=== PATIENT | male | born 1970 | race Caucasian/White ===

== ENCOUNTER 2018-12-23 01:08 | Emergency (ER) | payer OTHER, SELFPAY ==
[2018-12-23] VITALS (8 sets, daily range): BP systolic 97–164; BP diastolic 57–134; PULSE 54–74; RESP 16–22; TEMP 36.6; O2SAT 95–99; BMI 32.1
--- NOTE | 2018-12-23 01:15 | EKG12_ITS ---
Test Reason : CP Blood Pressure : / mmHG Vent. Rate : 073 BPM Atrial Rate : 073 BPM P-R Int : 122 ms QRS Dur : 088 ms QT Int : 418 ms P-R-T Axes : 040 031 048 degrees QTc Int : 460 ms Normal sinus rhythm Nonspecific T wave abnormality Abnormal ECG Confirmed by BELA NYE, RENETTA ([id number]), editor in chief newspaper KEVIN HOLLOWAY ([id number]) on 12/24/2018 12:55:40 PM Referred By: Confirmed By:RENETTA CRAMER MD
--- NOTE | 2018-12-23 01:15 | RAD_ITS ---
HISTORY: CPChest PainRAD - Chest EXAM: XR Chest 1 View: COMPARISON: None FINDINGS: # of images incl. paperwork: 1 Lungs are clear. Heart is not enlarged. Bones are normal. Pulmonary vascularity is distinct. No effusions. RAD/Chest 1 View (Portable) IMPRESSION: Normal. at 0205 Reported and signed by: Abebe Worthington MD Electronically Signed: Abebe Worthington MD at 2:04 EDT Tel , Service support ,
--- NOTE | 2018-12-23 01:20 | ED.DCSUM_ITS ---
- ER Visit Summary Date of Service: 12/23/18 Chief Complaint: Chest pain History of Present Illness: The patient is a 48 M presenting with chest pain. Patient states this started 1 hour ago. It woke him from sleep. He has pain in the left chest. He denies shortness of breath. Denies nausea or vomiting. Patient was given aspirin and nitro per EMS. Pain improved with nitro. He has a history of hypertension. He chews tobacco. He states he drank 3 beers tonight. Denies PE/DVT risk factors. Physical Examination: Vitals are stable. Patient is afebrile. Alert no acute distress. HEENT exam is unremarkable. Neck is supple. Lungs are clear and equal bilaterally. Heart is regular rate and rhythm. Abdomen is soft nontender nondistended. Extremities are unremarkable. Skin is warm and dry. No focal neurologic deficit. Remainder of exam is unremarkable. Emergency Department Course and Treatment: Patient was given aspirin per EMS. EKG is sinus rate of 73 with nonspecific T wave changes. Chest x-ray shows no acute process. CBC, chemistries unremarkable other than sodium 132, potassium 3.2. Troponin is negative. Alcohol level 391. Repeat troponin will be obtained and checked out to the oncoming physician. Disposition: Pending Impression: Chest pain, alcohol intoxication This note was generated with [employer] dictation software. It may contain incorrect words, spelling, and punctuation that were not noted in review of the chart prior to signing ED Disposition - Plan for ED Patient: Instructions: ED Chest Pain Atypical Unkn Cause, ED Alcohol Intoxication Referrals: Care Physician,No Primary [NON-STAFF] -
[2018-12-23 01:26] LABS: Absolute Lymphocyte Count 2.14 X10^3/ul (0.83-4.51); Absolute Neutrophil Count 1.8 X10^3/uL (2.0-7.7); Basophil# 0.02 X10^3/uL; Basophil% 0.4 % (0-1); Eosinophil# 0.11 X10^3/uL; Eosinophils% 2.3 % (0-5); Hematocrit 41.5 % (40-54); Lymphocyte # 2.14 X10^3/ul (4.0); Mean Corp Hgb Conc 36.1 g/gl (32-36); Mean Corpuscular Hgb 31.8 pg (27.0-32.0); Mean Corpuscular Volume 88.1 fL (80-94); Mean Platelet Vol. 8.8 fl (6.2-12.0); Monocyte# 0.68 X10^3/uL; Monocyte% 14.3 % (0-10); Neutrophil # 1.81 X10^3/uL (2.7-7.7); Platelet Count 162 K/mm3 (150-450); RBC Distribution Width SD 38.1 fl (35.1-43.9); Red Blood Count 4.71 M/mm3 (4.6-6.2); White Blood Count 4.8 K/mm3 (4.4-11.0)
[2018-12-23 01:40] LABS: Anion Gap 9 (5-15); BUN 7 mg/dL (7-18); BUN/Creat Ratio 7.4 RATIO (10-20); Calcium,Total 8.1 mg/dL (8.5-10.1); Chloride 98 mmol/L (98-107); Creatinine, Serum 0.95 mg/dL (0.70-1.30); EST Glomerular Filtration Rate 91 mL/min (>60); Est Glom Filt Rate - Afr Amer 110 mL/min (>60); Estimated Creatinine Clearance 96.13 ml/min; Glucose 95 mg/dL (74-106); Potassium 3.2 mmol/L (3.5-5.1); Sodium Level 132 mmol/L (136-145)
[2018-12-23 01:43] LABS: POSITIVE COUNT NO; POSITIVE DIFFERENTIAL NO; POSITIVE MORPHOLOGY NO
--- NOTE | 2018-12-23 01:52 | ED.RN ---
CRITICAL LAB VALUE RECEIVED FROM LAB. ETOH 391.
--- NOTE | 2018-12-23 03:01 | ED.DEP ---
ED Disposition - Plan for ED Patient: Instructions: ED Chest Pain Atypical Unkn Cause, ED Alcohol Intoxication Referrals: Care Physician,No Primary [NON-STAFF] -
== END 2018-12-23 07:55 | disposition home or self-care (01) ==
LOC: ED 01:33
PROVIDERS: Emergency Provider Emergency Medicine; Family Provider Family Medicine; PCP Family Medicine
DX: R07.9 Chest pain, unspecified (principal); F10.129 Alcohol abuse with intoxication, unspecified; Y90.8 Blood alcohol level of 240 mg/100 ml or more; I10 Essential (primary) hypertension; Z72.0 Tobacco use
CPT/HCPCS: 71045; 80048; 80320; 84484; 85025; 93005; 99285; J7030; A4216; G0480

== ENCOUNTER → 2020-05-18 15:20 | Outpatient (CLI) | payer OTHER, SELFPAY ==
[2018-12-23 01:09] VITALS: BMI 32.1
[2020-05-18 16:18] LABS: ALB/GLOB Ratio 1.3 RATIO (0.9-2.4); AST(SGOT) 64 U/L (15-37); Alanine Aminotransfer ALT/SGPT 88 U/L (16-61); Albumin, Serum 4.4 g/dL (3.2-5.0); Alkaline Phosphatase 60 U/L (45-117); Anion Gap 7 (5-15); BUN 10 mg/dL (7-18); BUN/Creat Ratio 10.3 RATIO (10-20); Calcium,Total 9.2 mg/dL (8.5-10.1); Chloride 107 mmol/L (98-107); Cholesterol 147 mg/dL (200); Creatinine, Serum 0.97 mg/dL (0.70-1.30); EST Glomerular Filtration Rate 87 mL/min (>60); Est Glom Filt Rate - Afr Amer 106 mL/min (>60); Globulin 3.5 g/dL (2.2-4.2); Glucose 86 mg/dL (74-106); High Density Lipoprotein 97 mg/dL; Potassium 3.8 mmol/L (3.5-5.1); Protein, Total 7.9 g/dL (6.4-8.2); Sodium Level 142 mmol/L (136-145); Triglycerides 42 mg/dL; Very Low Density Lipoprotein 8 mg/dL (5-40)
== END ==
PROVIDERS: PCP Family Medicine; Referring Provider Nurse Practitioner Primary Care; Visit Provider Nurse Practitioner Primary Care
DX: I10 Essential (primary) hypertension (principal)
CPT/HCPCS: 36415; 80053; 80061

== ENCOUNTER 2024-07-29 14:14 | Emergency (ER) | payer OTHER, SELFPAY ==
[2024-07-29 14:21] VITALS: BP 196/124; PULSE 86; RESP 18; TEMP 37.1; O2SAT 100
[2024-07-29 14:22] VITALS: BP 171/116; PULSE 77; RESP 20; O2SAT 94
--- NOTE | 2024-07-29 14:22 | EKG12_ITS ---
Test Reason : POSS STROKE Blood Pressure : */* mmHG Vent. Rate : 70 BPM Atrial Rate : 70 BPM P-R Int : 128 ms QRS Dur : 82 ms QT Int : 402 ms P-R-T Axes : 54 14 21 degrees QTcB Int : 434 ms Normal sinus rhythm Normal ECG Confirmed by RENATO NYE, AMISH ([id number]), rewrite editor WENDY GRIMALDO ([id number]) on 08/06/2024 6:37:02 AM Referred By: Confirmed By: AMISH GROSS MD
--- NOTE | 2024-07-29 14:22 | CT_ITS ---
STUDY: CT HEAD STROKE PROTOCOL W/O CONTRAST INJECTION REASON FOR EXAM: Male, 54 years old. Neuro deficit, acute, stroke suspected RADIATION DOSAGE (If Supplied By Facility): CTDIvol = ( 44.99 ) mGy, DLP = ( 812.98 ) mGycm TECHNIQUE: Transaxial CT imaging of the brain was performed without administration of intravenous contrast material. Individualized dose optimization techniques were used for this CT. COMPARISON: No relevant priors. FINDINGS: Normal soft tissue structures. Normal calvarium. There is mild cerebral atrophy with widening of the extra-axial spaces and ventricular dilatation. Normal white matter tracts of the cerebral hemispheres. Normal basal ganglia and thalami. Normal brainstem. Normal cerebellum. There is no intracranial hemorrhage. There are no findings of an acute ischemic infarction. Mucosal thickening of the right ethmoid sinus. ASPECT score: 10 CT/STROKE Brain/Head without Cont IMPRESSION: Chronic involutional changes of the brain. N.B. : The above Results were Read Back by Kamlesh Larios MD to Olayinka Candelario and understanding confirmed on 07/29/2024 14:34:26 (ET). Electronically Signed: Kamlesh Larios MD at 14:38 EST ,
--- NOTE | 2024-07-29 14:23 | CT_ITS ---
STUDY: CTA HEAD AND NECK WITH CONTRAST REASON FOR EXAM: Male, 54 years old. Neuro deficit, acute, stroke suspected RADIATION DOSAGE (If Supplied By Facility): CTDIvol = ( 28.88 ) mGy, DLP = ( 798.17 ) mGycm TECHNIQUE: CT angiography was performed with a multi-detector CT scanner. Data acquisition was obtained from the skull base through the vertex following intravenous administration of IV 100mL Isovue-[id number]. MIP images were reconstructed from the axial data set. Post-processing of the angiographic images was performed, with multiplanar reformation and 3D reconstruction. Individualized dose optimization techniques were used for this CT. COMPARISON: No relevant priors. FINDINGS: Normal bilateral petrous carotid arteries. Normal right cavernous carotid artery with a normal supraclinoid bifurcation. Normal left cavernous carotid artery with a normal supraclinoid bifurcation. Normal right A1 segments of the anterior cerebral artery. Normal left A1 segments of the anterior cerebral artery. Normal intact anterior communicating artery (ACOM). Normal bilateral A2 segments of the anterior cerebral arteries. Normal right M1 and M2 segments of the middle cerebral arteries, with a normal M1 bifurcation. Normal left M1 and M2 segments of the middle cerebral arteries, with a normal M1 bifurcation. Normal right posterior communicating artery (PCOM). Normal left posterior communicating artery (PCOM). Normal bilateral vertebral arteries. Normal basilar artery with a normal basilar bifurcation. The visualized bilateral superior cerebellar (SCA) arteries are normal. Normal bilateral P1, P2 and visualized P3 segments of the posterior cerebral arteries. There is no demonstrated aneurysm of the craig of [place]. There is no demonstrated abnormality of the visualized brain. AORTIC ARCH: Normal visualized aortic arch. Normal origins of the brachiocephalic, left common carotid, and left subclavian arteries. RIGHT CAROTID ARTERIES: Normal right common carotid artery (CCA). Normal right common carotid bulb. Normal origin of the right internal carotid (ICA) artery without a hemodynamically significant stenosis. Normal visualized cervical portion of the right internal carotid artery. Normal origin of the right external carotid artery (ECA). LEFT CAROTID ARTERIES: Normal left common carotid artery (CCA). Normal left common carotid bulb. Normal origin of the left internal carotid (ICA) artery without a hemodynamically significant stenosis. Normal visualized cervical portion of the left internal carotid artery. Normal origin of the left external carotid artery (ECA). VERTEBRAL ARTERIES: There is enhancement within the bilateral vertebral arteries with a small right vertebral artery, and a dominant left vertebral artery. CT/STROKE CTA Head AND Neck W/Con IMPRESSION: Normal CTA Head and neck with contrast. N.B. : The above Results were Read Back by Kamlesh Larios MD to Dr Kodak DO, and understanding confirmed on 07/29/2024 14:45:12 (ET). Electronically Signed: Kamlesh Larios MD at 14:46 EST ,
[2024-07-29 14:26] VITALS: BMI 28.6
[2024-07-29 14:31] LABS: Absolute Lymphocyte Count 1.39 X10^3/uL (0.83-4.51); Absolute Neutrophil Count 2.3 X10^3/uL (2.0-7.7); Basophil# 0.05 X10^3/uL; Basophil% 1.1 % (0-1); Eosinophil# 0.12 X10^3/uL; Eosinophils% 2.7 % (0-5); Hematocrit 44.5 % (40-54); Hemoglobin 15.4 g/dL (13.0-16.5); Lymphocyte # 1.39 X10^3/ul (0.83-4.51); Mean Corp Hgb Conc 34.6 g/dL (32-36); Mean Corpuscular Volume 95.5 fL (80-94); Mean Platelet Vol. 8.7 fl (6.2-12.0); Monocyte# 0.59 X10^3/uL; Monocyte% 13.1 % (0-10); NRBC Flagged by Analyzer 0 % (0-5); Neutrophil # 2.33 X10^3/uL (2.7-7.7); Neutrophil % 51.9 % (47-70); Platelet Count 157 K/mm3 (150-450); RBC Distribution Width CV 12.1 % (11.6-14.6); RBC Distribution Width SD 42.3 fl (35.1-43.9); Red Blood Count 4.66 M/mm3 (4.6-6.2); White Blood Count 4.5 K/mm3 (4.4-11.0)
[2024-07-29 14:32] VITALS: BMI 28.6
[2024-07-29 14:42] VITALS: BP 168/124; PULSE 78; RESP 19; O2SAT 98
[2024-07-29 14:48] LABS: Anion Gap 8 (5-15); BUN 6 mg/dL (7-18); BUN/Creat Ratio 8.3 RATIO (10-20); Calcium,Total 9.4 mg/dL (8.5-10.1); Chloride 106 mmol/L (98-107); Creatinine, Serum 0.72 mg/dL (0.70-1.30); EST Glomerular Filtration Rate 121 mL/min (>60); Est Glom Filt Rate - Afr Amer 147 mL/min (>60); Estimated Creatinine Clearance 127.81 ml/min; Glucose 94 mg/dL (74-106); Potassium 4.5 mmol/L (3.5-5.1); Sodium Level 138 mmol/L (136-145); Troponin-I HS 5 pg/mL (3.0-78.0)
[2024-07-29 14:55] LABS: Bedside Glucose 77 mg/dL (74-106)
--- NOTE | 2024-07-29 15:05 | RAD_ITS ---
STUDY: X-RAY CHEST REASON FOR EXAM: Male, 54 years old. Neuro deficit, acute, stroke suspected TECHNIQUE: Single AP portable view of the chest. COMPARISON: Comparison is made with prior study dated December 23, 2018. FINDINGS: EKG electrodes are seen. The lungs are clear and expanded. There is no demonstrated pleural abnormality. Normal size heart. Normal mediastinum and joann. Normal visualized pulmonary arteries. There is atherosclerotic tortuosity of the aortic arch and descending thoracic aorta. There are diffuse degenerative changes of the visualized thoracic spine. Normal visualized ribs, clavicles, and shoulders. There is no demonstrated abnormality of the visualized soft tissue structures of the upper abdomen. RAD/Chest 1 View IMPRESSION: No acute abnormality is seen. Electronically Signed: Kamlesh Larios MD at 15:15 EST ,
[2024-07-29 15:08] LABS: International Normalized Ratio 1.1; Prothrombin Time (Protime)PT. 14.2 SECONDS (11.7-14.9)
[2024-07-29 15:09] LABS: Partial Thromboplast Time 31.6 Seconds (24.1-36.2)
[2024-07-29 15:20] VITALS: BP 153/112; PULSE 77; RESP 16; O2SAT 98
--- NOTE | 2024-07-29 15:51 | EX.ED.DYSGE1 ---
HPI History of Present Illness Chief Complaint: Stroke Alert Narrative Narrative: Patient is a 54-year-old male with no past medical history who presents to the emergency department with a chief complaint of changes vision of his left eye. 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 He states that today around 10 AM he lost vision in his left eye and ultimately came here further evaluation management. [facility] Home Medications ?Medication ?Instructions ?Recorded ?Last Taken ?Type lisinopril 40 mg tablet 40 mg PO DAILY 07/29/24 07/29/24 History metoprolol succinate 50 mg 50 mg PO DAILY 07/29/24 07/29/24 History tablet,extended release 24 hr Allergy/AdvReac Type Severity Reaction Status Date / Time oxytetracycline (From Allergy Unknown Other Verified 07/29/24 14:20 Terramycin) Social History Smoking Status: Never smoker ROS ROS ED ROS Narrative Constitutional: Denies any fevers, chills, headaches, lightness, dizziness Eyes: Complains of changes in vision as noted above Cardiovascular: Denies chest pain or palpitations Respiratory: Denies coughing wheezing shortness of breath Abdomen: Denies abdominal pain nausea vomit diarrhea : Denies any urinary symptoms Neurological: Denies any numbness, weakness, tingling Musculoskeletal: Denies back pain Skin: Denies any rashes or lesions EXAM Physical Exam Narrative Exam Narrative: General: Patient was lying in bed rest comfortably did not appear to be acute distress Head: Atraumatic, normocephalic Eyes: PERRL bilaterally, EOMI bilaterally, no conjunctival injection noted Neck: Soft, supple, trachea midline Cardiovascular: Regular rate and rhythm no murmurs gallops rubs noted Respiratory: Clear to auscultation bilaterally no rales rhonchi or wheezes noted Abdomen: Soft, nondistended, nontender to palpation, bowel sounds present x 4 Extremities: +5/5 strength noted in the bilateral upper and lower extremities, radial pulses +2/4 in the bilateral upper extremities, no pedal edema neuroexam Neurological: Patient follow commands knew that he was at [facility] year is 2024. NIH of 3 GCS 15 Skin: Warm, dry, intact Const Vital Signs: 07/29/24 14:21 07/29/24 14:22 07/29/24 14:22 Temperature 98.7 F Temperature Source Oral Pulse Rate 86 77 Respiratory Rate 18 20 H Blood Pressure 196/124 H 171/116 H Blood Pressure Mean 148 134 Pulse Ox 100 94 Oxygen Delivery Method Room Air Room Air Room Air 07/29/24 14:42 07/29/24 15:20 07/29/24 16:23 Temperature 98 F Temperature Source Pulse Rate 78 77 77 Respiratory Rate 19 H 16 16 Blood Pressure 168/124 H 153/112 H 153/112 H Blood Pressure Mean 138 125 125 Pulse Ox 98 98 98 Oxygen Delivery Method MDM MDM MDM Narrative Medical decision making narrative: Patient is a 54-year-old male who presented to the emergency department the chief complaint of loss of vision out of his left eye. He states that 3 weeks ago he lost vision in his right eye. On the differential diagnose includes but not limited to intracranial hemorrhage, hypertensive emergency, ischemic stroke, central retinal artery occlusion, central retinal vein occlusion. Once workup is obtained reviewed he will be reevaluated. Patient was noted to be hypertensive here in the emergency department. His last known well he states was 10 AM this morning and notes that that is when this occurred. During our evaluation here he was being evaluated by Dr. Bateman at [facility] and he told him that his changes in his left eye were occurring over the past 2 days. Patient was not tenecteplase candidate as he was at the 4-1/2-hour sasha originally and then he changed his story to his symptoms progressing over the last [address] Bateman does not feel that this is a stroke at this point time and he felt that he needed emergent ophthalmology consult. Called on-call nursing center tutor Dr. Johns who states that he cannot come in and evaluate the patient here in the emergency department but he is happy to see him in the office if he is able to be discharged today. Patient's CBC was largely unremarkable no evidence leukocytosis white blood count was 4.5, he was 15.4, plate count was noted be 157. Patient's INR 1.1, PT of 14.2. Patient sodium was 130, potassium of 4.5, creatinine normal at 0.72. Patient's troponin was normal at 5. Patient's EKG reviewed and independently interpreted by myself which showed sinus rhythm with a rate of 70 bpm Patient's chest x-ray reviewed by myself by radiology showed no acute abnormalities. Patient's CT head and brain without contrast showed chronic involutional changes. Patient CTA head and neck reviewed and showed normal CTA head and neck. Discussed with the patient the options as follows: A the patient be transferred down to [facility] for emergent ophthalmology consult and further workup of his symptoms versus following up with the nursing center tutor in the outpatient setting today is Dr. Johns that he could see him in the office and returning to the emergency department if his exam is largely unremarkable and there are no acute findings to suggest his loss of vision in his left eye. I discussed with him that we cannot be sure that this is not a stroke without an MRI. Once again the [facility] neurologist Dr. Bateman states that he does not believe this is a stroke and believes that this is more related to and ophthalmology concern. On reevaluation the patient he states that he would like to go straight to the ophthalmology's office and be evaluated by them and return to the emergency department if his exam is largely benign and does not explain his symptoms. We had further discussion that there is chance that he worsens and deteriorates while not being in the hospital on his way to the ophthalmology office during the visit or any other time. He voiced understanding of this and still would prefer to go this route and return to the emergency department if need be. Patient was given labetalol as he was noted be hypertensive in the 190s. He states that he does see his physician approximately every 3 to 6 months and states that his blood pressure before all of this was normal. Patient will be discharged home and was advised to go straight to the ophthalmology office for this visit. We called back Dr. Johns and notified him that the patient was on his way. All question concerns were answered at bedside. Lab Data Labs: Laboratory Results - last 24 hr 07/29/24 07/29/24 14:25 14:37 WBC 4.5 RBC 4.66 Hgb 15.4 Hct 44.5 MCV 95.5 H MCH 33.0 H MCHC 34.6 RDW Std Deviation 42.3 RDW Coeff of [place] 12.1 Plt Count 157 MPV 8.7 Immature Gran % (Auto) 0.200 Neut % (Auto) 51.9 Lymph % (Auto) 31.0 [place] % (Auto) 13.1 H Eos % (Auto) 2.7 Baso % (Auto) 1.1 H Absolute Neuts (auto) 2.3 Absolute Lymphs (auto) 1.39 Nucleated RBC % 0 PT 14.2 INR 1.1 APTT 31.6 Sodium 138 Potassium 4.5 Chloride 106 Carbon Dioxide 25.0 Anion Gap 8 BUN 6 L Creatinine 0.72 Estim Creat Clear Calc 127.81 Est GFR (MDRD) Af Amer 147 Est GFR (MDRD) Non-Af 121 BUN/Creatinine Ratio 8.3 L Glucose 94 Calcium 9.4 Troponin I High Sens 5 POC Glucose 77 Radiography Diagnostic Testing: Clinical Impression(s) from Imaging Studies Brain CT 07/29/24 14:22 IMPRESSION: Chronic involutional changes of the brain. N.B. : The above Results were Read Back by Kamlesh Larios MD to Olayinka Candelario and understanding confirmed on 07/29/2024 14:34:26 (ET). Electronically Signed: Kamlesh Larios MD at 14:38 EST , ADDENDUM: 07/29/24 1445 IMPRESSION: Chronic involutional changes of the brain. N.B. : The above Results were Read Back by Kamlesh Larios MD to Olayinka Candelario and understanding confirmed on 07/29/2024 14:34:26 (ET). Electronically Signed: Kamlesh Larios MD at 14:38 EST , Head/Neck CTA 07/29/24 14:23 IMPRESSION: Normal CTA Head and neck with contrast. N.B. : The above Results were Read Back by Kamlesh Larios MD to Dr Kodak DO, and understanding confirmed on 07/29/2024 14:45:12 (ET). Electronically Signed: Kamlesh Larios MD at 14:46 EST , ADDENDUM: 07/29/24 1453 IMPRESSION: Normal CTA Head and neck with contrast. N.B. : The above Results were Read Back by Kamlesh Larios MD to Dr Kodak DO, and understanding confirmed on 07/29/2024 14:45:12 (ET). Electronically Signed: Kamlesh Larios MD at 14:46 EST , Chest X-Ray 07/29/24 15:05 IMPRESSION: No acute abnormality is seen. Electronically Signed: Kamlesh Larios MD at 15:15 EST , Discharge Plan Triage Chief Complaint: Stroke Alert Other Complaint: Vision Prob ED Provider: Olayinka Candelario Dx/Rx/DC Orders Clinical Impression: Change in vision Prescriptions: No Action metoprolol succinate 50 mg tablet extended release 24 hr 50 mg PO DAILY lisinopril 40 mg tablet 40 mg PO DAILY Primary Care Provider: Jigna Titus Referrals: Jigna Titus DO [Primary Care Provider] - Richie Johns MD [Med Staff - Active Staff] - Activity Restrictions/Additional Instructions: Go immediately to the nursing center tutor office for evaluation today. If this is overall normal examination and they do not feel that anything else is going on with your eyes I would advise you to return here to the emergency department for further workup of your changes in vision. Follow-up with your primary care physician outpatient setting. Keep a close eye and your blood pressure this was elevated here today. Print Language: Anguill[place] Disposition Disposition: Home, Self Care Discharge Date/Time: 07/29/24 16:23
[2024-07-29 16:23] VITALS: BP 153/112; PULSE 77; RESP 16; TEMP 36.6; O2SAT 98
== END 2024-07-29 16:23 | disposition home or self-care (01) ==
PROVIDERS: Emergency Provider Emergency Medicine; PCP Family Medicine; Visit Provider Emergency Medicine
DX: H53.9 Unspecified visual disturbance (principal)
CPT/HCPCS: 70450; 70496; 70498; 71045; 80048; 82962; 84484; 85025; 85610; 85730; 93005; 99285; Q9967; A4216